=== PATIENT | male | born 1965 | race Caucasian/White ===

== ENCOUNTER 2016-06-03 02:26 | Emergency (ER) | payer OTHER ==
[2016-06-03 02:34] VITALS: RESP 16
--- NOTE | 2016-06-03 02:37 | EDPHY ---
H & P Stated Complaint: anxiety HPI/ROS: HPI CHIEF COMPLAINT: Palpitations, dry mouth, anxiety, can't sleep HISTORY OF PRESENT ILLNESS: This patient is a very pleasant 50-year-old male, significant past medical history for BPH, and recently diagnosed mass on his kidney that he is due to have surgery to remove. Presents emergency room at 2: 45 a.m. in the morning feeling anxious, having palpitations, and trouble sleeping. He also tells me has dry mouth. He tells me he has been urinating more frequently. He tells me came in the emergency room by private vehicle as he is feeling anxious. He is concerned given dry mouth and increased urinary frequency may have diabetes. He is also concerned about his upcoming surgery of his kidney. 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 Exam Constitutional appears well nontoxic, anxious, triage nursing summary reviewed , vital signs reviewed, awake/alert. Eyes normal conjunctivae and sclera, EOMI, PERRLA. HENT normal inspection, atraumatic, moist mucus membranes, no epistaxis, neck supple/ no meningismus, no raccoon eyes. Respiratory clear to auscultation bilaterally, normal breath sounds, no respiratory distress, no wheezing. Cardiovascular rate normal, regular rhythm, no murmur, no edema, distal pulses normal. Gastrointestinal soft, non-tender, no rebound, no guarding, normal bowel sounds, no distension, no pulsatile mass. Genitourinary no CVA tenderness. Musculoskeletal no midline vertebral tenderness, full range of motion, no calf swelling, no tenderness of extremities, no meningismus, good pulses, neurovascularly intact. Skin pink, warm, & dry, no rash, skin atraumatic. Neurologic awake, alert and oriented x 3, AAOx3, moves all 4 extremities equally, motor intact, sensory intact, CN II-XII intact, normal cerebellar, normal vision, normal speech. Psychiatric anxious, normal mood/affect. Heme/Lymph/Immune no lymphadenopathy. Differential Diagnosis: Includes but is not limited to in a particular acute anxiety, dehydration, diabetes, electrolyte abnormality, cardiac arrhythmia Medical Decision Making: the patient had IV established will obtain blood work, patient had an EKG, check electrolytes will be hydrated gently with IV fluids normal saline, received 0.5 mg IV Ativan for anxiety. Will re-evaluate. Re-evaluation: EKG interpretation by me on record in [facility] system. Impression time of EKG 3:46 a.m., this is sinus rhythm shows no acute ischemic changes appreciated. There is incomplete right bundle-branch block present. Otherwise unremarkable EKG. 0558: re-examination at this time patient is resting comfortably no complaints. He feels better after anxiety medicine. Blood work, EKG, electrolytes, urinalysis reviewed unremarkable. No evidence of diabetes. Nothing to explain palpitations, dry mouth and feeling anxious. I did explain most likely is anxiety. He does understand return emergency room if he develops any worsening symptoms questions or concerns. He appears well nontoxic. Vital signs reviewed. Blood work reviewed. Source: Patient - Personal History Current Tetanus/Diphtheria Vaccine: Yes - Medical/Surgical History Hx Asthma: No Hx Chronic Respiratory Disease: No Hx Diabetes: No Hx Cardiac Disease: No Hx Renal Disease: Yes Hx Cirrhosis: No Hx Alcoholism: No Hx HIV/AIDS: No Hx Splenectomy or Spleen Trauma: No Other PMH: PMHx:allergies, dermatitis, anxiety, depression, back problems. PSHx : ACL (R) spring 2015, miniscectomy, shoulder surgery L - Social History Smoking Status: Never smoked Constitutional: Initial Vital Signs Temperature (C) 36.9 C 06/03/16 02:30 Heart Rate 100 06/03/16 02:30 Respiratory Rate 16 06/03/16 02:30 Blood Pressure 142/92 H 06/03/16 02:30 O2 Sat (%) 96 06/03/16 02:30 O2 Delivery Mode Room Air Allergies/Adverse Reactions: No Known Allergies Allergy (Unverified 06/03/16 02:29) Home Medications: Medication Instructions Recorded CLONAZEPAM 06/03/16 Sertraline HCl 06/03/16 Singulair 06/03/16 Medical Decision Making - Data Points Laboratory Results: Laboratory Results 06/03/16 03:00 06/03/16 03:00 06/03/16 06/03/16 06/03/16 05:45 05:15 03:00 WBC 6.38 10^3/uL (3.80-9.50) RBC 4.55 10^6/uL (4.40-6.38) Hgb 14.3 g/dL (13.7-17.5) Hct 42.1 % (40.0-51.0) MCV 92.5 fL (81.5-99.8) MCH 31.4 pg (27.9-34.1) MCHC 34.0 g/dL (32.4-36.7) RDW 12.4 % (11.5-15.2) Plt Count 253 10^3/uL (150-400) MPV 9.9 fL (8.7-11.7) Neut % (Auto) 71.0 % (39.3-74.2) Lymph % (Auto) 21.0 % (15.0-45.0) [place] % (Auto) 6.9 % (4.5-13.0) Eos % (Auto) 0.5 L % (0.6-7.6) Baso % (Auto) 0.3 % (0.3-1.7) Nucleat RBC Rel Count 0.0 % (0.0-0.2) Absolute Neuts (auto) 4.53 10^3/uL (1.70-6.50) Absolute Lymphs (auto) 1.34 10^3/uL (1.00-3.00) Absolute Monos (auto) 0.44 10^3/uL (0.30-0.80) Absolute Eos (auto) 0.03 10^3/uL (0.03-0.40) Absolute Basos (auto) 0.02 10^3/uL (0.02-0.10) Absolute Nucleated RBC 0.00 10^3/uL (0-0.01) Immature Gran % 0.3 % (0.0-1.1) Immature Gran # 0.02 10^3/uL (0.00-0.10) Sodium 141 mEq/L (134-144) Potassium 3.7 mEq/L (3.5-5.2) Chloride 103 mEq/L (97-110) Carbon Dioxide 26 mEq/l (22-31) Anion Gap 12 mEq/L (8-16) BUN 11 mg/dL (7-23) Creatinine 1.0 mg/dL (0.7-1.3) Estimated GFR > 60 Glucose 159 H mg/dL (70-100) Calcium 9.4 mg/dL (8.5-10.4) Total Bilirubin 2.0 H mg/dL (0.1-1.4) Conjugated Bilirubin 0.2 mg/dL (0.0-0.5) Unconjugated Bilirubin 1.8 H mg/dL (0.0-1.1) AST 27 IU/L (17-59) ALT 37 IU/L (21-72) Alkaline Phosphatase 59 IU/L (38-126) Creatine Kinase 126 IU/L (0-224) CK-MB (CK-2) Fraction 0.49 ng/mL (0-3.19) Troponin I < 0.012 ng/mL (0-0.034) Total Protein 7.3 g/dL (6.3-8.2) Albumin 4.2 g/dL (3.5-5.0) Lipase 133.0 IU/L (23-300) Urine Color YELLOW Urine Appearance CLEAR Urine pH 6.0 (5.0-7.5) Ur Specific [place] 1.008 (1.002-1.030) Urine Protein NEGATIVE (NEGATIVE) Urine Ketones NEGATIVE (NEGATIVE) Urine Blood NEGATIVE (NEGATIVE) Urine Nitrate NEGATIVE (NEGATIVE) Urine Bilirubin NEGATIVE (NEGATIVE) Urine Urobilinogen NEGATIVE EU (0.2-1.0) Ur Leukocyte Esterase NEGATIVE (NEGATIVE) Ur Culture Indicated? NOT INDICATED (NI) Urine Glucose NEGATIVE (NEGATIVE) Urine Opiates Screen NEGATIVE (NEGATIVE) Urine Barbiturates NEGATIVE (NEGATIVE) Ur Phencyclidine Scrn NEGATIVE (NEGATIVE) Ur Amphetamine Screen NEGATIVE (NEGATIVE) U Benzodiazepines Scrn NEGATIVE (NEGATIVE) Urine Cocaine Screen NEGATIVE (NEGATIVE) U Marijuana (THC) Screen NEGATIVE (NEGATIVE) Ethyl Alcohol < 10 mg/dL (0-10) Medications Given: Discontinued Medications Sodium Chloride (Ns) 1,000 mls @ 0 mls/hr IV ONCE ONE PRN Reason: As Directed Stop: 06/03/16 02:59 Last Admin: 06/03/16 03:00 Dose: 1,000 mls Lorazepam (Ativan Injection) 0.5 mg IVP EDNOW ONE Stop: 06/03/16 02:59 Last Admin: 06/03/16 03:39 Dose: 0.5 mg Departure - Departure Disposition: Home, Routine, Self-Care Clinical Impression: Anxiety Condition: Good Instructions: Anxiety (ED) Additional Instructions: Stay well-hydrated. Return emergency room if develops any worsening symptoms or concerns. Referrals: Alexx Garcia MD [Primary Care Provider] - As per Instructions
[2016-06-03] MEDS ORDERED: NS 1,000 ML IV ONE (02:58)
[2016-06-03] MEDS ORDERED: LORazepam 2 MG/ML INJ IVP ONE (02:58)
--- NOTE | 2016-06-03 03:19 | CPEKG ---
Heart Rate: 82 RR Interval: 732 P-R Interval: 172 QRSD Interval: 112 QT Interval: 416 QTC Interval: 486 P [place]: 51 QRS [place]: -60 T Wave [place]: 34 EKG Severity - ABNORMAL ECG - EKG Impression: PACEMAKER SPIKES OR ARTIFACTS EKG Impression: SINUS RHYTHM EKG Impression: LEFT ANTERIOR FASCICULAR BLOCK Electronically Signed By: Chon Zayas 03-Jun-2016 07:16:34
[2016-06-03 03:22] LABS: % IMMATURE GRANULYOCYTES 0.3 % (0.0-1.1); ABSOLUTE IMMATURE GRANULOCYTES 0.02 10^3/uL (0.00-0.10); ADD DIFF? NO; ADD MORPH? NO; ADD SCAN? NO; ATYPICAL LYMPHOCYTE FLAG 0 (0-99); FRAGMENT RBC FLAG 0 (0-99); HEMATOCRIT 42.1 % (40.0-51.0); HEMOGLOBIN 14.3 g/dL (13.7-17.5); LEFT SHIFT FLG 0 (0-99); LIPEMIA HEMOLYSIS FLAG 90 (0-99); MEAN CELL HEMOGLOBIN 31.4 pg (27.9-34.1); MEAN CELL VOLUME 92.5 fL (81.5-99.8); MEAN PLATELET VOLUME 9.9 fL (8.7-11.7); PLATELET CLUMPS FLAG 0 (0-99); PLATELET COUNT 253 10^3/uL (150-400); RED BLOOD CELL COUNT 4.55 10^6/uL (4.40-6.38); RED CELL DISTRIBUTION WIDTH 12.4 % (11.5-15.2)
[2016-06-03 03:32] LABS: ALANINE AMINOTRANSFERASE 37 IU/L (21-72); ALBUMIN 4.2 g/dL (3.5-5.0); ALKALINE PHOSPHATASE 59 IU/L (38-126); ANION GAP 12 mEq/L (8-16); ASPARTATE AMINOTRANSFERASE 27 IU/L (17-59); BILIRUBIN-CONJUGATED 0.2 mg/dL (0.0-0.5); BILIRUBIN-UNCONJUGATED 1.8 mg/dL (0.0-1.1); CALCIUM 9.4 mg/dL (8.5-10.4); CARBON DIOXIDE 26 mEq/l (22-31); CHLORIDE 103 mEq/L (97-110); ETHANOL SERUM < 10 mg/dL (0-10); GLOMERULAR FILTRATION RATE > 60; GLUCOSE 159 mg/dL (70-100); POTASSIUM 3.7 mEq/L (3.5-5.2); SODIUM 141 mEq/L (134-144); TOTAL PROTEIN 7.3 g/dL (6.3-8.2)
[2016-06-03 03:43] LABS: CREATINE KINASE-MB FRACTION 0.49 ng/mL (0-3.19); TROPONIN I < 0.012 ng/mL (0-0.034)
--- NOTE | 2016-06-03 03:48 | CPEKG ---
Heart Rate: 80 RR Interval: 750 P-R Interval: 172 QRSD Interval: 104 QT Interval: 392 QTC Interval: 453 P [place]: 51 QRS [place]: -24 T Wave [place]: 27 EKG Severity - ABNORMAL ECG - EKG Impression: SINUS RHYTHM EKG Impression: INCOMPLETE RBBB AND LAFB Electronically Signed By: Chon Zayas 03-Jun-2016 07:16:34
[2016-06-03 05:53] LABS: COLOR YELLOW; LEUKOCYTE ESTERASE,URINE NEGATIVE (NEGATIVE); NITRITE,URINE NEGATIVE (NEGATIVE)
[2016-06-03 06:46] VITALS: BP 134/76; PULSE 82; TEMP 98.2; O2SAT 97
[2016-06-03] MEDS ORDERED: LORAZEPAM 1 MG PREPACK#4 BTL TAKEHOME ONE (06:50)
== END 2016-06-03 06:55 | disposition home or self-care (01) ==
DX: F41.9 Anxiety disorder, unspecified (principal)
CPT/HCPCS: 80305; 96374; G0480

== ENCOUNTER 2016-11-11 10:55 | Day surgery (SDC) | payer OTHER ==
[2016-11-11 11:26] VITALS: PULSE 72
[2016-11-11] MEDS ORDERED: LR 1,000 ML IV ONE (11:28)
--- NOTE | 2016-11-11 13:05 | PDGENHP ---
History & Physical Chief Complaint: Pancreatic cyst History of Present Illness: History of enlarging pancreatic neck cyst Relevant Physical Exam: GED: NAD. Cardiac: RRR. Lungs: CTA B. Abd: Soft, nt, nd
--- NOTE | 2016-11-11 13:08 | POSTOPPROG ---
Post Op Note Date of Operation: 11/11/16 Surgeon: Kilo Matthews Pre-op Diagnosis: Pancreatic neck cyst Post-op Diagnosis: Same Indication: Pancreatic neck cyst Procedure: EUS w/ FNA Findings: Pancreatic neck cyst s/p FNA Inf/Abcess present in the surg proc area at time of surgery?: No
[2016-11-11] MEDS ORDERED: PROPOFOL/EMULSION 500 MG/50 ML BOTTLE IV ONE ×3 (13:14→13:48)
[2016-11-11] MEDS ORDERED: LIDOCAINE 2% 100 MG/5 ML SYR ONE (13:15)
[2016-11-11] MEDS ORDERED: levOFLOXACIN 500 MG/DEXTROSE/100 ML BAG IV ONE (13:36)
[2016-11-11] MEDS ORDERED: NALOXONE HCL 0.4 MG/ML INJ IVP PRN (14:11)
[2016-11-11] MEDS ORDERED: fentaNYL 100 MCG/2 ML INJ IVP PRN (14:11)
[2016-11-11] MEDS ORDERED: ONDANSETRON 4 MG/2 ML VIAL IVP PRN (14:11)
[2016-11-11] MEDS ORDERED: LR 500 ML IV PRN (14:11)
--- NOTE | 2016-11-11 14:13 | PDANEPAE ---
ANE Past Medical History - Cardiovascular History Hx Hypertension: No Hx Arrhythmias: No Hx Chest Pain: No - Pulmonary History Hx COPD: No Hx Asthma/Reactive Airway Disease: No Hx Recent Upper Respiratory Infection: No Hx Oxygen in Use at Home: No Hx Sleep Apnea: No Sleep Apnea Screening Result - Last Documented: Negative - Neurologic History Hx Cerebrovascular Accident: No Hx Seizures: No Hx Dementia: No - Endocrine History Hx Diabetes: No Hypothyroid: No Hyperthyroid: No Obesity: no - Renal History Hx Renal Disorders: Yes Renal History Comment: benign mass excised 2017 - Liver History Hx Hepatic Disorders: No - Neurological & Psychiatric Hx Hx Neurological and Psychiatric Disorders: No Neurological / Psychiatric History Comment: "low back issues-no problems" - Cancer History Hx Cancer: No - Congenital Disorder History Hx Congenital Disorders: No - GI History GERD: mild Gastrointestinal History Comment: pancreatic cyst - Other Health History Other Health History: hx sinus infections, seasonal allergies-"year round" - Chronic Pain History Chronic Pain: No - Surgical History Prior Surgeries: scopes -knee,shoulder. partial nephrectomy (benign mass) 2017 ANE Review of Systems - Exercise capacity METS (RN): 4 METS ANE Patient History - Allergies Allergies/Adverse Reactions: No Known Allergies Allergy (Verified 11/07/16 12:39) - Home Medications Home Medications: Avodart 0.5 MG (*) 11/07/16 [Last Taken Unknown] Dymista Nasal [place] 11/07/16 [Last Taken Unknown] ZOLPIDEM TARTRATE 11/07/16 [Last Taken Unknown] ZYRTEC 11/07/16 [Last Taken Unknown] - NPO status NPO Since - Liquids (Date): 11/11/16 NPO Since - Liquids (Time): 23:00 NPO Since - Solids (Date): 11/11/16 NPO Since - Solids (Time): 23:00 - Smoking Hx Smoking Status: Never smoked ANE Labs/Vital Signs - Vital Signs Blood Pressure: 127/81 Heart Rate: 72 Respiratory Rate: 14 O2 Sat (%): 95 Height: 187.96 cm Weight: 96.615 kg ANE Physical Exam - Airway Neck exam: FROM Mallampati Score: Class 1 Mouth exam: normal dental/mouth exam - Pulmonary Pulmonary: no respiratory distress - Cardiovascular Cardiovascular: regular rate and rhythym - ASA Status ASA Status: II ANE Anesthesia Plan Anesthesia Plan: GA with mask Urgent/Emergent Case: Jade dwyer completed preop but documented later for safe timely pt care
--- NOTE | 2016-11-11 14:13 | POSTANESTH ---
Post Anesthetic Evaluation Cardiovascular Status: Normal, Stable Respiratory Status: Normal, Stable Level of Consciousness/Mental Status: Mildly Sleepy, Arousable Pain Control: Adequate, Prn Tx Ordered Nausea/Vomiting Control: Adequate, Prn Tx Ordered Complications Possibly Related to Anesthesia: None Noted
[2016-11-11 15:25] VITALS: TEMP 97.7
[2016-11-11 15:26] VITALS: BP 97/79; RESP 13
[2016-11-11 15:53] VITALS: O2SAT 97
--- NOTE | 2016-11-12 03:38 | GPN ---
[f rep st] PROCEDURE NOTE PREPROCEDURE DIAGNOSIS: Pancreatic neck cyst. POSTPROCEDURE DIAGNOSIS: Pancreatic neck cyst. PROCEDURE PERFORMED: Endoscopic ultrasound including the esophagus, stomach, and second portion of the duodenum, with fine-needle aspiration. MEDICATIONS: Monitored anesthesia care. INDICATIONS: The patient is a 51-year-old male with a slowly enlarging pancreatic neck cyst. He sands d previous imaging measuring the cyst to be 79 mm in size with enlargement to 14 x 7 mm on followup MRI. He is here today for endoscopic ultrasound and possible fine-needle aspiration. The risks and benefits of the procedure were discussed with the patient and consent obtained. The risks include, but are not limited to, bleeding, perforation, pancreatitis, and infection. The patient is ASA cla ss 2. PROCEDURE: The upper endoscope was inserted into the esophagus, into stomach, and to the second por tion of the duodenum. The esophagus appears normal. The Z-line is regular at 44 cm from the inciso rs. The stomach is normal. There was no evidence of gastritis. The duodenum, second portion, was normal. Next, the curvilinear echo endoscope was inserted into the esophagus, into the stomach, and second portion of the duodenum. The pancreatic head appeared normal. The extrahepatic bile duct a nd pancreatic duct appeared normal. The pancreatic duct was normal throughout the pancreas. There was no dilation of the main pancreatic duct. In the pancreatic neck, as visualized when in the stom ach, there was a cigar-shaped cystic lesion measuring 14.4 x 5.2 mm. There was no evidence of mural nodules. There was no involvement with the main pancreatic duct. Next, a 22-gauge Genmab ic Slimline FNA needle was inserted into the cyst. No fluid was removed that was visible in the syr brandee. The needle was removed. The preliminary photo pathology results were benign. 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 Th e cyst was biopsied using fine-needle aspiration. RECOMMENDATIONS: 1. Discharge home with escort. 2. Advance diet as tolerated. 3. Continue antibiotics for a total of 3 days. He was given levofloxacin 500 mg IV during the proc edure, and he will be given 2 additional days of treatment for prophylaxis for cyst biopsy. 4. He needs a repeat MRCP in 6 months to follow the cystic lesion, assuming the final biopsy result s are again benign. Thank you for allowing me to participate in the care of your patient. Please do not hesitate to sandy bailey with questions. /[id number]/MODL
== END 2016-11-11 16:04 | disposition home or self-care (01) ==
LOC: FSGY 10:55
PROVIDERS: ATTEND Internal Medicine Gastroenterology
PROC: 0F9G4ZX Drainage of Pancreas, Percutaneous Endoscopic Approach, Diagnostic (ICD-10-PCS; principal; 2016-11-11 12:00)
DX: K86.2 Cyst of pancreas (principal)
CPT/HCPCS: J1956; J2001; J2704